=== PATIENT | female | born 1955 | race Two or more races ===

== ENCOUNTER 2017-09-23 11:04 | Day surgery (SDC) | payer OTHER ==
[2017-09-23] MEDS ORDERED: FENTAnyl 50 MCG/ML VIAL (13:13)
[2017-09-23] MEDS ORDERED: PROPOFOL 20 ML (13:13)
[2017-09-23] MEDS ORDERED: MIDAZOLAM 1 MG/ML 2 ML INJ (13:13)
== END 2017-09-23 14:31 | disposition home or self-care (01) ==
LOC: GIL 11:04
DX: K64.1 Second degree hemorrhoids (principal); E11.9 Type 2 diabetes mellitus without complications; E78.5 Hyperlipidemia, unspecified; Z79.82 Long term (current) use of aspirin
CPT/HCPCS: 45378; 82962; 88305